=== PATIENT | male | born 2005 | race Two or more races ===

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

== ENCOUNTER 2024-08-03 19:23 | Emergency (ER) | payer SELFPAY ==
[~2024-08-03] VITALS: Ht 172.7 cm; Wt 63.6 kg
[~2024-08-03 19:23] MED LIST: ALBU108A5 IN
[2024-08-03 19:26] VITALS: BP 132/84; PULSE 84; RESP 16; O2SAT 96
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
== END 2024-08-04 00:56 | disposition left against medical advice (07) ==
LOC: ER 19:23 → EDBD 19:23 → ER 08-04 00:56
DX: S16.1XXA Strain of muscle, fascia and tendon at neck level, initial encounter (principal); R07.89 Other chest pain; J45.909 Unspecified asthma, uncomplicated; V59.88XA Occupant (driver) (passenger) of pick-up truck or van injured in other specified transport accidents, initial encounter; Y93.I9 Activity, other involving external motion; Y92.488 Other paved roadways as the place of occurrence of the external cause; Y99.8 Other external cause status